=== PATIENT | female | born 2005 | race Caucasian/White ===

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

== ENCOUNTER 2024-05-23 08:29 | Outpatient (CLI) | payer BC, SELFPAY ==
[2024-05-23 13:53] LABS: Chloride* 103 mmol/L (96-114)
[2024-05-23 13:54] LABS: Potassium* 4.2 mmol/L (3.6-5.1); Sodium* 138 mmol/L (135-149)
[2024-05-23 13:56] LABS: Anion Gap 14 mEq/L (7-15); Blood Urea Nitrogen* 7 mg/dL (5-24); Carbon Dioxide* 21 mmol/L (20-32); Creatinine* 0.7 mg/dL (0.5-1.5); Estimated Glomerular Filt Rate 127 ml/min
[2024-05-23 13:57] LABS: Cholesterol* 237 mg/dL (90-199); Glucose* 90 mg/dL (60-115); HDL Cholesterol* 60 mg/dL (>=50); LDL Cholesterol Calculated 141 mg/dL (<100); Triglycerides* 182 mg/dL (40-149)
[2024-05-23 14:30] LABS: Free T4 Free Thyroxine* 0.95 ng/dL (0.70-1.85)
[2024-05-23 14:34] LABS: Hemoglobin A1C* 5.3 % (0-5.6)
[2024-05-25 07:08] LABS: Lithium, Serum or Plasma 0.5 mmol/L (0.5-1.2)
== END 2024-05-23 08:30 | disposition home or self-care (01) ==
LOC: NPINS 08:29
PROVIDERS: PCP Physician Assistant Medical; Visit Provider Physician Assistant
DX: N92.0 Excessive and frequent menstruation with regular cycle (principal); R79.89 Other specified abnormal findings of blood chemistry; F41.9 Anxiety disorder, unspecified
CPT/HCPCS: 80048; 80061; 80178; 83036; 84439; 84443

== ENCOUNTER 2024-10-14 14:01 | Outpatient (CLI) | payer BC, SELFPAY | END 2024-10-14 14:02 | disposition home or self-care (01) | LOC: FRMREF 14:03 | PROVIDERS: PCP Physician Assistant Medical; Visit Provider Physician Assistant Medical | DX: E66.9 Obesity, unspecified (principal) | CPT/HCPCS: 84443 ==